=== PATIENT | male | born 1975 | race Caucasian/White ===

== ENCOUNTER 2018-03-13 14:09 | Inpatient (IN) ==
--- NOTE | 2018-03-13 15:06 | Emergency Department Note ---
Disposition Clinical Impression: Cryptogenic organizing pneumonia, Shortness of breath Disposition: Admitted As Inpatient Condition: Fair Time of Disposition: 19:04 General Adult HPI - General Chief complaint: ED Shortness of Breath/Dyspnea Stated complaint: "cough,chest burning has lung disease" Time Seen by Provider: 03/13/18 15:04 Source: patient Limitations: no limitations Nursing Notes Reviewed: Yes Vital Signs Reviewed: Yes - History of Present Illness HPI Narrative: 43-year-old male presents emergency department with concern for 5 days of cough. Patient has history of cryptogenic organizing pneumonia. States that this feels exactly the same as where he had it before. Patient does report having ICU admissions. States that his lungs are burning. Denies any fevers, but does report sputum production. Patient states that he feels exact same as when he was diagnosed with cryptogenic organizing pneumonia in the past. Patient denies any history of blood clots. He denies any unilateral leg swelling. He does report the chest pain as pleuritic in nature. Pain Scale: 10 - Related Data Home Medications Medication Instructions Recorded Confirmed Cyclobenzaprine [Flexeril] 10 mg PO TID PRN 03/13/18 03/13/18 Gabapentin [Neurontin] 300 mg PO TID 03/13/18 03/13/18 Naproxen Sodium [Aleve] 660 mg PO BID 03/13/18 03/13/18 Omeprazole [PriLOSEC] 20 mg PO DAILY 03/13/18 03/13/18 Oxycodone HCl/Acetaminophen 1 tab PO Q6H PRN 03/13/18 03/13/18 [Percocet 10-325 mg Tablet] Quetiapine Fumarate [SEROquel] 50 mg PO HS 03/13/18 03/13/18 rOPINIRole [Requip] 0.25 mg PO HS 03/13/18 03/13/18 Allergies Allergy/AdvReac Type Severity Reaction Status Date / Time meloxicam [From Mobic] Allergy Rash Verified 03/13/18 17:17 Penicillins [PCN] Allergy Rash Verified 03/13/18 17:17 aspirin AdvReac See Verified 03/13/18 17:17 Comments All systems ED: reviewed and negative except as stated. Review of Systems: As Per HPI Constitutional: Denies: fever Cardiovascular: Reports: chest pain. Denies: palpitations Respiratory: Reports: cough, dyspnea, sputum production. Denies: wheezes, hemoptysis Gastrointestinal: Denies: abdominal pain, nausea, vomiting Musculoskeletal: Denies: back pain Past Medical History - Past Medical History Medical history: Reports: arthritis, GERD, GI bleed, other Surgical history: Reports: other (Left knee reconstruction, right shoulder surgery, Spinal cord stimulator insertion and revision, Right hip arthroscopy, benign bladder tumor removal, right nephrectomy x 2) Psychiatric history: Reports: anxiety, depression - Social History Smoking Status: Former smoker Smokeless Tobacco Status: Yes Alcohol use: Reports: none Drug use: Reports: opiates Physical Exam - General Limitations: no limitations General appearance: alert, in no apparent distress - Head Head exam: normocephalic - Eye Eye exam: Present: EOMI - ENT ENT exam: mucous membranes moist - Neck Neck exam: Present: trachea midline - Chest Chest inspection: Present: symmetric chest wall rise - Respiratory Respiratory exam: Absent: respiratory distress - Cardiovascular Cardiovascular exam: Present: normal rhythm, tachycardia - Abdominal Exam Abdominal exam: Present: soft, Non-Tender. Absent: distention, guarding, rebound, rigidity - Extremities Exam Extremities exam: Present: normal capillary refill - Neurological Exam Neurological exam: Present: alert, oriented X3 - Psychiatric Psychiatric exam: Present: normal affect, normal mood - Skin Skin exam: Present: warm, dry, intact Course Vital Signs Temperature 98.4 F 03/13/18 14:14 Pulse Rate 130 03/13/18 14:14 Respiratory Rate 22 03/13/18 14:14 Blood Pressure 134/93 03/13/18 14:14 O2 Sat by Pulse Oximetry 96 03/13/18 14:14 Temperature 98.4 F 03/13/18 14:17 Pulse Rate 130 03/13/18 14:17 Respiratory Rate 22 03/13/18 14:17 Blood Pressure 134/93 03/13/18 14:17 O2 Sat by Pulse Oximetry 96 03/13/18 14:17 Oxygen Delivery Oxygen Delivery Room Air Medical Decision Making - [facility] Narrative Medical decision making narrative: 43-year-old male presents emergency department with concern for exacerbation of his chronic lung disease, cryptogenic organizing pneumonia. Patient's currently tachycardic with a heart rate in the 130s. He does have evidence of a new perihilar groundglass opacity bilaterally concerning for acute edema versus atypical infection. At this time, most likely patient's cryptogenic organizing pneumonia. Do not suspect heart failure at this time as patient does not have any rales on lung exam, does not have any lower extremity edema. EKG did not show any ischemic ST changes. We will obtain troponin. We are consulting our research greenhouse supervisor here. Patient's given 125 mg Solu-Medrol IV. Chest X-Ray 03/13/18 14:25 IMPRESSION: New mild bilateral perihilar ground-glass opacity concerning for acute edema versus atypical infection. D/ / Venkata Jacobsen / Venkata Jacobsen Interpreting Provider: Venkata Jacobsen [id number] I spoken to the research greenhouse supervisor here, Dr. Rodriguez. He states the patient to stay here and he would be consulted on the floor to follow him. We obtained CTA of the chest. Revealed no evidence of pulmonary embolus. This did reveal patchy multifocal groundglass opacification with upper lobe predominance per radiology. Similar to previous CT that was obtained. Troponin was 0.06. Patient reporting chest pain, just reporting a little burning sensation. Do not suspect myocardial infarction at this time. Believe that this is secondary to demand ischemia. EKG did not reveal any ischemic ST changes. Patient does have a leukocytosis of 27.8. Patient always has an elevated white blood cell count. We are currently managing both healthcare associated pneumonia as well as cryptogenic organizing pneumonia. Patient was given vancomycin, cefepime, azithromycin. We did obtain sputum cultures. Patient agree with plan for admission. Patient admitted to Dr. Pacheco, the hospitalist. Chest X-Ray 03/13/18 14:25 IMPRESSION: New mild bilateral perihilar ground-glass opacity concerning for acute edema versus atypical infection. D/ / Venkata Jacobsen / Venkata Jacobsen Interpreting Provider: Venkata Jacobsen Chest CTA 03/13/18 15:18 IMPRESSION: 1. No evidence of pulmonary embolic disease. 2. Patchy multifocal ground-glass opacification with upper lobe predominance. The findings are nonspecific and similar to the previous CT. Differential considerations include atypical pneumonia and possibly edema. 3. Small mediastinal nodes, slightly increased in size and likely reactive. D/ / 03/13/2018 17:34:38 Virgil Gaston MD / Lakshmi Springer Interpreting Provider: Virgil Gaston MD - Lab Data Result diagrams: 03/13/18 15:51 03/13/18 15:51 Lab Results 03/13/18 03/13/18 03/13/18 Range/Units 15:51 15:51 16:07 WBC 27.8 H (4.3-11.1) K/mcL RBC 5.35 (4.19-5.50) M/mcL Hgb 15.8 (12.9-16.9) g/dL Hct 46.4 (37.5-50.1) % MCV 86.7 (83.0-100.0) fL MCH 29.5 (28.0-33.3) pg MCHC 34.1 (31.6-35.5) g/dL RDW 12.9 (11.5-14.5) % Plt Count 384 (140-400) K/mcL MPV 9.2 L (9.4-12.4) fL Sodium 137 (136-145) mEq/L Potassium 4.0 (3.5-5.1) mEq/L Chloride 102 (98-107) mEq/L Carbon Dioxide 24 (23-29) mEq/L BUN 12 (6-20) mg/dL Creatinine 1.12 (0.70-1.30) mg/dL Est GFR ( Amer) > 60 (> 60) Est GFR (Non-Af Amer) > 60 (> 60) BUN/Creatinine Ratio 11 (6-26) Glucose 97 (70-105) mg/dL Calculated Osmolality 284 (280-300) Lactic Acid 1.4 (0.5-2.2) mmol/L Calcium 10.1 (8.6-10.3) mg/dL Troponin I 0.06 H* (< 0.04) ng/mL B-Natriuretic Peptide (Less than 100) pg/mL TSH 0.487 (0.340-5.600) mcIU/mL 03/13/18 Range/Units 16:49 WBC (4.3-11.1) K/mcL RBC (4.19-5.50) M/mcL Hgb (12.9-16.9) g/dL Hct (37.5-50.1) % MCV (83.0-100.0) fL MCH (28.0-33.3) pg MCHC (31.6-35.5) g/dL RDW (11.5-14.5) % Plt Count (140-400) K/mcL MPV (9.4-12.4) fL Sodium (136-145) mEq/L Potassium (3.5-5.1) mEq/L Chloride (98-107) mEq/L Carbon Dioxide (23-29) mEq/L BUN (6-20) mg/dL Creatinine (0.70-1.30) mg/dL Est GFR ( Amer) (> 60) Est GFR (Non-Af Amer) (> 60) BUN/Creatinine Ratio (6-26) Glucose (70-105) mg/dL Calculated Osmolality (280-300) Lactic Acid (0.5-2.2) mmol/L Calcium (8.6-10.3) mg/dL Troponin I (< 0.04) ng/mL B-Natriuretic Peptide 51 (Less than 100) pg/mL TSH (0.340-5.600) mcIU/mL - EKG Data EKG #1 EKG attestation: Yes I reviewed and interpreted this EKG. EKG results narrative: 14:25 Ventricular rate 122 bpm, IA interval 125 ms, QRS tenriism 91 ms, QT 296 segs , QTC 369 ms, normal axis. Sinus tachycardia with a ventricular rate of 122 bpm. No evidence of any ischemic ST changes on this EKG. Attestation Statement - Attestation Attestation: I, Morales Osorio DO, examined this patient [id number] and my medical decision-making was reviewed with Dr. Tone Turner, Resident Physician. I agree with the documented findings, disposition and treatment plan as described except to the extent set forth below. Please see my progress notes for details.
[2018-03-13] MEDS ORDERED: Ipratropium/Albuterol Neb 3 ML IH ONE (15:09)
[2018-03-13] MEDS ORDERED: Isovue-370 500 ML INFUS..BTL IV ONE (15:18)
[2018-03-13] MEDS ORDERED: methylPREDNISolone 125 MG/2 ML VIAL IVP ONE (15:19)
[2018-03-13] MEDS ORDERED: *HR* Morphine Immed Rel 30 MG TABLET PO STA (15:21)
[2018-03-13] MEDS ORDERED: 0.9 % Sodium Chloride 1,000 ML IVC ONE ×2 (15:22→15:51)
[2018-03-13] MEDS ORDERED: Azithromycin 500 MG in D5% in Water 250 ML IVPB ONE (15:33)
[2018-03-13] MEDS ORDERED: Cefepime HCl 2,000 MG in 0.9 % Sodium Chloride Mini Bag 100 ML IVPB STA (15:33)
[2018-03-13 16:11] LABS: Mean Platelet Volume 9.2 fL (9.4-12.4)
[2018-03-13 16:12] LABS: Hematocrit 46.4 % (37.5-50.1); Hemoglobin 15.8 g/dL (12.9-16.9); Mean Corpuscular HGB Conc 34.1 g/dL (31.6-35.5); Mean Corpuscular Hemoglobin 29.5 pg (28.0-33.3); Mean Corpuscular Volume 86.7 fL (83.0-100.0); Platelet Count 384 K/mcL (140-400); Red Blood Count 5.35 M/mcL (4.19-5.50); Red Cell Distribution Width 12.9 % (11.5-14.5)
--- NOTE | 2018-03-13 16:17 | Emergency Department Note ---
Disposition Clinical Impression: Cryptogenic organizing pneumonia, Shortness of breath Disposition: Admitted As Inpatient Condition: Fair Time of Disposition: 19:05 General Adult HPI - General Chief complaint: ED Shortness of Breath/Dyspnea Stated complaint: "cough,chest burning has lung disease" Time Seen by Provider: 03/13/18 15:04 Source: patient Limitations: no limitations - History of Present Illness Pain Scale: 10 - Related Data Home Medications Medication Instructions Recorded Confirmed Cyclobenzaprine [Flexeril] 10 mg PO TID PRN 03/13/18 03/13/18 Gabapentin [Neurontin] 300 mg PO TID 03/13/18 03/13/18 Naproxen Sodium [Aleve] 660 mg PO BID 03/13/18 03/13/18 Omeprazole [PriLOSEC] 20 mg PO DAILY 03/13/18 03/13/18 Oxycodone HCl/Acetaminophen 1 tab PO Q6H PRN 03/13/18 03/13/18 [Percocet 10-325 mg Tablet] Quetiapine Fumarate [SEROquel] 50 mg PO HS 03/13/18 03/13/18 rOPINIRole [Requip] 0.25 mg PO HS 03/13/18 03/13/18 Allergies Allergy/AdvReac Type Severity Reaction Status Date / Time meloxicam [From Mobic] Allergy Rash Verified 03/13/18 17:17 Penicillins [PCN] Allergy Rash Verified 03/13/18 17:17 aspirin AdvReac See Verified 03/13/18 17:17 Comments Constitutional: Denies: fever Cardiovascular: Reports: chest pain. Denies: palpitations Respiratory: Reports: cough, dyspnea, sputum production. Denies: wheezes, hemoptysis Gastrointestinal: Denies: abdominal pain, nausea, vomiting Musculoskeletal: Denies: back pain Past Medical History - Past Medical History Medical history: Reports: arthritis, GERD, GI bleed, other Surgical history: Reports: other (Left knee reconstruction, right shoulder surgery, Spinal cord stimulator insertion and revision, Right hip arthroscopy, benign bladder tumor removal, right nephrectomy x 2) Psychiatric history: Reports: anxiety, depression - Social History Smoking Status: Former smoker Smokeless Tobacco Status: Yes Alcohol use: Reports: none Drug use: Reports: opiates Physical Exam - General Limitations: no limitations General appearance: alert, in no apparent distress Course Vital Signs Temperature 98.4 F 03/13/18 14:14 Pulse Rate 130 03/13/18 14:14 Respiratory Rate 22 03/13/18 14:14 Blood Pressure 134/93 03/13/18 14:14 O2 Sat by Pulse Oximetry 96 03/13/18 14:14 Temperature 98.4 F 03/13/18 14:17 Pulse Rate 130 03/13/18 14:17 Respiratory Rate 22 03/13/18 14:17 Blood Pressure 134/93 03/13/18 14:17 O2 Sat by Pulse Oximetry 96 03/13/18 14:17 Oxygen Delivery Oxygen Delivery Room Air Medical Decision Making - Lab Data Result diagrams: 03/13/18 15:51 03/13/18 15:51 Lab Results 03/13/18 03/13/18 03/13/18 Range/Units 15:51 15:51 16:07 WBC 27.8 H (4.3-11.1) K/mcL RBC 5.35 (4.19-5.50) M/mcL Hgb 15.8 (12.9-16.9) g/dL Hct 46.4 (37.5-50.1) % MCV 86.7 (83.0-100.0) fL MCH 29.5 (28.0-33.3) pg MCHC 34.1 (31.6-35.5) g/dL RDW 12.9 (11.5-14.5) % Plt Count 384 (140-400) K/mcL MPV 9.2 L (9.4-12.4) fL Sodium 137 (136-145) mEq/L Potassium 4.0 (3.5-5.1) mEq/L Chloride 102 (98-107) mEq/L Carbon Dioxide 24 (23-29) mEq/L BUN 12 (6-20) mg/dL Creatinine 1.12 (0.70-1.30) mg/dL Est GFR ( Amer) > 60 (> 60) Est GFR (Non-Af Amer) > 60 (> 60) BUN/Creatinine Ratio 11 (6-26) Glucose 97 (70-105) mg/dL Calculated Osmolality 284 (280-300) Lactic Acid 1.4 (0.5-2.2) mmol/L Calcium 10.1 (8.6-10.3) mg/dL Troponin I 0.06 H* (< 0.04) ng/mL B-Natriuretic Peptide (Less than 100) pg/mL TSH 0.487 (0.340-5.600) mcIU/mL 03/13/18 Range/Units 16:49 WBC (4.3-11.1) K/mcL RBC (4.19-5.50) M/mcL Hgb (12.9-16.9) g/dL Hct (37.5-50.1) % MCV (83.0-100.0) fL MCH (28.0-33.3) pg MCHC (31.6-35.5) g/dL RDW (11.5-14.5) % Plt Count (140-400) K/mcL MPV (9.4-12.4) fL Sodium (136-145) mEq/L Potassium (3.5-5.1) mEq/L Chloride (98-107) mEq/L Carbon Dioxide (23-29) mEq/L BUN (6-20) mg/dL Creatinine (0.70-1.30) mg/dL Est GFR ( Amer) (> 60) Est GFR (Non-Af Amer) (> 60) BUN/Creatinine Ratio (6-26) Glucose (70-105) mg/dL Calculated Osmolality (280-300) Lactic Acid (0.5-2.2) mmol/L Calcium (8.6-10.3) mg/dL Troponin I (< 0.04) ng/mL B-Natriuretic Peptide 51 (Less than 100) pg/mL TSH (0.340-5.600) mcIU/mL Attestation Statement - Attestation Attestation: I, Morales Osorio DO, examined this patient [id number] and my medical decision-making was reviewed with Dr. Tone Turner, Resident Physician. I agree with the documented findings, disposition and treatment plan as described except to the extent set forth below. Please see my progress notes for details. 43-year-old male presents emergency room for evaluation of burning sensation in his lungs. He is denying any chest pain fevers chills nausea vomiting or diarrhea. Denies any headache or vision change. Of note, the patient has a long-standing history of cryptogenic organizing pneumonia that is been seen and evaluated and treated for this facility by pulmonology as well as [facility]. Patient is been well for approximately 2 years without a flareup. The only thing that is worse from in the past when he gets his acute flareups is morphine for the cough as well as high-dose steroids. Patient denies any new illnesses fevers chills chest pain shortness of breath headache vision changes nausea vomiting or diarrhea. Denies any burning with urination cough cold congestion. Patient has not had any trauma or injury. On physical exam the patient is tachycardic and does have what looks like some difficulty with taking inspiration secondary to the pain. He describes pain as every time he goes to breathe and her abdomen is associated. Burning sensation in his lungs. Patient has been seen by the pulmonology team here at this facility and is being medically managed as best as possible. On physical exam his resting in the bed he does have abnormal vital signs appear to be consistent with a presentation of pain and difficulty with breathing his heart is regular his lungs are clear to auscultation despite having diminished inspiratory effort secondary to pain chest wall is normal presentation with no crepitus or deformity. Abdomen is soft. Patient moves his extremities without any difficulty and does not show any acute signs of decompensation or pulmonary abnormality. Patient will have detailed workup here today with CBC chemistry troponin EKG and CT angiography the chest to rule out any other potential etiology considering has not had a thorough workup and this facility and quite a long time. Patient is clinically stable but does have concerning findings on initial presentation exam and vital sign evaluation. Antibiotics will be started as requested by conversations with the pulmonology group. Patient will require admission once a treatment course has been established and started. See detailed documentation of physical exam, medical intervention, medical decision-making disposition the resident physician's note. No critical care by the patient's treatment course at this time. [id number] Patient is stable. Steroids have been given. Pneumatic regimen was started. Pulmonology team has been contacted and they are comfortable with the patient's care being completed this facility. Patient has consult placed. CT angiography the chest does not show any acute signs of pulmonary emboli but the hip does show possible right upper lobe groundglass opacity consistent with either pneumonia or chronic interstitial disease. Patient is clinically stable. Admission process to be established at this time. No other acute intervention required. This was contacted and recommendations were considered no other acute issues this time patient still 1800 Patient was discussed with the hospitalist Dr. Sharpe. No other recommendations or concerns. Patient is clinically stable. Patient will be admitted for continuation of care with pulmonology consultation.
[2018-03-13 16:26] LABS: BUN/Creatinine Ratio 11 (6-26); Blood Urea Nitrogen 12 mg/dL (6-20); Calcium 10.1 mg/dL (8.6-10.3); Carbon Dioxide 24 mEq/L (23-29); Chloride 102 mEq/L (98-107); Glucose 97 mg/dL (70-105); Osmolality,Calculated 284 (280-300); Sodium 137 mEq/L (136-145); eGFR For Non-African Americans > 60 (> 60)
[2018-03-13 16:39] LABS: Troponin I 0.06 ng/mL (< 0.04)
[2018-03-13 16:40] LABS: Thyroid Stimulating Hormone 0.487 mcIU/mL (0.340-5.600)
[2018-03-13] MEDS ORDERED: Ondansetron 4 MG/2 ML VIAL IVP PRN (20:43)
[2018-03-13] MEDS ORDERED: Naloxone 0.4 MG/ML INJ IVP PRN ×2 (20:43)
--- NOTE | 2018-03-13 20:49 | Internal Med History&Physical ---
<Jorge Martinez - Last Filed: 03/14/18 04:49> Date of Encounter: 03/14/18 Time of Encounter: 20:49 Internal Medicine - H&P: HPI Chief complaint: chest burning, cough Admitted From: Emergency Dept Plans for Post Hospital Care: Home History of present illness: Mr. Mederos is a 43 year old male with past medical history of cryptogenic organizing pneumonia, arthritis, GERD, degenerative disc disease presents to emergency department with complaint of cough and chest burning. He states the cough began 5 days ago is nonproductive. Chest pain began yesterday and has been getting progressively worse. He states that this feels exactly like his previous flare of cryptogenic organizing pneumonia. He was first diagnosed at this facility in June 2015 with a flare in March 2016. He states his initial diagnosis did require intubation, lung biopsy and transferred to [facility] intensive care. He states that he has been otherwise well meantime. He describes his chest pain as diffusely located across the chest and burning in nature. Pain is exacerbated with deep breathing and coughing. He denies any symptoms of fevers, chills, nausea, vomiting, numbness, tingling. He states that he is not necessarily short of breath but finds it difficult to take a deep breath due to his pain. He also describes some orthopnea but denies any lower extremity swelling. In the emergency department, vital signs are significant for tachycardia with a rate of 130, tachypnea 22, blood pressure 134/93, he was not was saturating 96% on 4L. laboratory results significant for WBC elevation of 27.8, troponin 0.06, BUNs/creatinine of 12/1.12 which is consistent with baseline. CTA of the chest was obtained to rule out coronary embolism and shows patchy multifocal groundglass opacities with prominence in the upper lobes. Pulmonology was consulted from the emergency department and will see the patient morning. He was started on vancomycin, cefepime, azithromycin as well as methylprednisone 125 mg. Past medical history as above Past surgical history includes left leg multiple surgeries secondary to trauma, metal plate. Lung biopsy Social history: Denies tobacco use, rare alcohol, denies drug use. Currently on disability since 2014 however previously worked in halfway, as welder plastic?, on farm. Past Med Surg Social Fam HX - Past Medical History Medical history: arthritis, GERD, GI bleed, other Additional medical history: criptogenic organizing PN Psychiatric history: anxiety, depression - Past Surgical History Surgical History: other (Left knee reconstruction, right shoulder surgery, Spinal cord stimulator insertion and revision, Right hip arthroscopy, benign bladder tumor removal, right nephrectomy x 2) Additional surgical history: RIGHT HIP SCOPED x2, LUNG BIOPSY - Social History Smoking Status: Former smoker Smokeless Tobacco Status: Yes Alcohol use: none Drug use: opiates - Family History Mother Adopted: Yes Living Status: Internal Medicine - H&P: Meds Cyclobenzaprine [Flexeril] 10 mg PO TID PRN 03/13/18 [History] Naproxen Sodium [Aleve] 660 mg PO BID 03/13/18 [History] Oxycodone HCl/Acetaminophen [Percocet 10-325 mg Tablet] 1 tab PO Q6H PRN [History] Quetiapine Fumarate [SEROquel] 50 mg PO HS 03/13/18 [History] RX: Gabapentin [Neurontin] 300 mg PO TID 03/13/18 [History] RX: Omeprazole [PriLOSEC] 20 mg PO DAILY 03/13/18 [History] rOPINIRole [Requip] 0.25 mg PO HS 03/13/18 [History] 3 Allergy/AdvReac Type Severity Reaction Status Date / Time meloxicam [From Mobic] Allergy Rash Verified 03/13/18 17:17 Penicillins [PCN] Allergy Rash Verified 03/13/18 17:17 aspirin AdvReac See Verified 03/13/18 17:17 Comments All Systems PM: A 10-system review of systems was performed and is negative for pertinent findings except as documented above in the HPI. - Constitutional Constitutional: no chills, no fever(s), no weakness - Cardiovascular Cardiovascular ROS IM: chest pain, dyspnea, orthopnea, other (Tachycardia), no dyspnea on exertion, no edema, no lightheadedness, no palpitations, no paroxysmal nocturnal dyspnea, no syncope - Respiratory Respiratory: cough, dyspnea, pain on inspiration, pain with cough, no hemoptysis , no wheezing, no excessive phlegm production - Gastrointestinal Gastrointestinal: no abdominal pain, no constipation, no diarrhea, no hematochezia, no melena, no nausea, no vomiting - Musculoskeletal Musculoskeletal ROS IM: no numbness, no tingling - Integumentary Integumentary IM: no rash - Neurological Neurological ROS: no confusion, no numbness, no tingling, no weakness - Constitutional Vitals: Temp Pulse Resp BP Pulse Ox 98.4 F 87 18 130/97 99 03/13/18 14:17 03/13/18 20:15 03/13/18 20:15 03/13/18 20:15 03/13/18 20:15 Exam: Gen.: Vitals noted. Mild distress, shallow rapid breathing secondary to pain. Speaking softly. AAOx3 HEENT: PERRL/EOMI, oropharynx clear, Normocephalic, atraumatic, MMM Cardiac: Regular rhythm, very mildly tachycardic, no murmur, +S1/S2 Pulmonary: Shallow breathing, some coarse breath sounds with no evidence of wheezing or Rales however exam is limited secondary to inability to take deep breaths., equal chest expansion Abdomen: soft, nontender, BS noted, no guarding, no rebound. Extremities: no BLE edema, nontender calf, no cyanosis or clubbing Neuro: A&Ox3, moves all extremities, no focal deficits Psych: Appropriate mood and behavior Internal Med - H&P Results - Labs CBC & Chem 7: 03/13/18 15:51 03/13/18 15:51 - Assessment and plan (1) Acute respiratory failure with hypoxia Current Visit: Yes Status: Acute Assessment and plan: secondary to ANDROID DEVELOPER as above hypoxic on presentation and patient states that he is unable to take deep breaths due to pain currently tolerating 4L with saturations in upper 90s management as above. patient was told in the past that if he is intubated that he is unlikely to ever wake up. we did discuss code status and he made it clear that he would like to be [id number]. (2) Sepsis Current Visit: Yes Status: Suspected Assessment and plan: - SIRS criteria positive for tachycardia (130), RR 22, WBC of 27.8 - lactate wnl at 1.4 - Suspect that this is partially at least related to ANDROID DEVELOPER as above, but with elevated white count in the absence of steroids we will continue to cover for multifocal PNA - CTA as above findings - Continue cefepime, azithromycin, vanc started in ED Qualifiers: Sepsis type: sepsis due to unspecified organism Qualified Code(s): A41.9 - Sepsis, unspecified organism (3) Chronic pain Current Visit: Yes Status: Chronic Assessment and plan: Reports multiple traumas with severe degenerative disc disease Take percocet 10mg at home Will give SL oxycodone with breakthrough fentanyl for pain as well as cough suppressant as above Qualifiers: Chronic pain type: due to trauma Qualified Code(s): G89.21 - Chronic pain due to trauma (4) GERD (gastroesophageal reflux disease) Current Visit: Yes Status: Chronic Assessment and plan: continue home meds Qualifiers: Esophagitis presence: without esophagitis Qualified Code(s): K21.9 - Gastro -esophageal reflux disease without esophagitis (5) DVT prophylaxis Current Visit: Yes Status: Acute Assessment and plan: Heparin 5000 units q12 hours (6) Cryptogenic organizing pneumonia Current Visit: Yes Status: Acute Assessment and plan: - History of ANDROID DEVELOPER first diagnosed in 2014 at this facility - Has had one flare in 2016 which had to be transferred to [facility] - CTA in ED showed patchy multifocal ground glass opacification with upper lobe predominance. - tachcyardic and tachypnic on presentation and WBC is elevated at 27.8 - Pulmonology was consult in ED and will see patient - Got solu-medrol bolus in ED, start on empiric antibiotics. - BNP wnl, lactic acid wnl Plan - Continue steroid treatment at solu-medrol 60 mg q6hr - Will continue abx of cefepime, azithromycin, vanc given leukocytosis - pulm consult - Continue supplemental O2 as needed. - Will give SL oxycodone and fentanyl for breakthrough pain. Patient states the only thing that helps cough and pain in the past has been morphine. He does have a history of chronic pain and takes percocet 10mg at home which have not been helping. - Time Spent With Patient Total time spent is greater than 50% in coordination of care (as documented) at patient's floor/unit and/or counseling patient: <Erik Kline - Last Filed: 03/14/18 07:09> Date of Encounter: 03/14/18 Internal Medicine - H&P: HPI History of present illness: Mr. Mederos is a 43 year old male All Systems PM: A 10-system review of systems was performed and is negative for pertinent findings except as documented above in the HPI. - Constitutional Vitals: Temp Pulse Resp BP Pulse Ox 97.6 F 70 16 141/85 95 03/14/18 06:38 03/14/18 06:38 03/14/18 06:38 03/14/18 06:38 03/14/18 06:38 Internal Med - H&P Results - Labs CBC & Chem 7: 03/14/18 04:05 03/14/18 04:05 Labs: Short CBC 03/14/18 Range/Units 04:05 WBC 17.3 H (4.3-11.1) K/mcL Hgb 14.5 (12.9-16.9) g/dL Hct 42.5 (37.5-50.1) % Plt Count 326 (140-400) K/mcL Neutrophils # 15.2 H (1.6-8.9) K/mcL BMP 03/14/18 04:05 Sodium 136 Potassium 4.0 Chloride 105 Carbon Dioxide 23 BUN 12 Creatinine 0.90 Glucose 193 H Calcium 9.0 Cardiac Enzymes 03/14/18 Range/Units 04:05 Troponin I 0.03 (< 0.04) ng/mL - Assessment and plan (1) DVT prophylaxis Current Visit: Yes Status: Acute (2) Chronic pain Current Visit: Yes Status: Chronic Qualifiers: Chronic pain type: due to trauma Qualified Code(s): G89.21 - Chronic pain due to trauma (3) Acute respiratory failure with hypoxia Current Visit: Yes Status: Acute (4) Sepsis Current Visit: Yes Status: Suspected Qualifiers: Sepsis type: sepsis due to unspecified organism Qualified Code(s): A41.9 - Sepsis, unspecified organism (5) GERD (gastroesophageal reflux disease) Current Visit: Yes Status: Chronic Qualifiers: Esophagitis presence: without esophagitis Qualified Code(s): K21.9 - Gastro -esophageal reflux disease without esophagitis (6) Cryptogenic organizing pneumonia Current Visit: Yes Status: Acute - Time Spent With Patient Total time spent is greater than 50% in coordination of care (as documented) at patient's floor/unit and/or counseling patient: - Attending Attestation Patient seen and examined with resident. Agree with assessment and plan; possible laceration of patient's cryptogenic organizing pneumonia flare secondary to suspected pneumonia. Continues broad-spectrum antibiotics, steroids. Pulmonary consultation morning. Time spent with patient greater than 30 minutes.
[2018-03-13] MEDS: *HR* FentaNYL (PF) 100 MCG/2 ML VIAL IVP PRN ×2 (22:04→23:30)
[2018-03-13] MEDS: rOPINIRole 0.25 MG TABLET PO SCH (23:09)
[2018-03-13] MEDS: Gabapentin 300 MG CAPSULE PO SCH (23:10)
[2018-03-13] MEDS: methylPREDNISolone 125 MG/2 ML VIAL IVP SCH (23:31)
[2018-03-13] MEDS ORDERED: *HR* FentaNYL (PF) 100 MCG/2 ML VIAL IVP PRN (23:50)
[2018-03-14] MEDS: OXYCODONE Oral CONC 10 MG/0.5 ML ORAL.SYG SL PRN ×3 (00:28→09:46)
[2018-03-14 04:49] LABS: Basophils % 0.2 %; Hematocrit 42.5 % (37.5-50.1); Hemoglobin 14.5 g/dL (12.9-16.9); Immature Granulocytes % 0.8 % (0-4); Lymphocytes # 1.7 K/mcL (0.6-4.6); Lymphocytes % 9.9 %; Mean Corpuscular HGB Conc 34.1 g/dL (31.6-35.5); Mean Corpuscular Hemoglobin 29.6 pg (28.0-33.3); Mean Corpuscular Volume 86.7 fL (83.0-100.0); Mean Platelet Volume 9.4 fL (9.4-12.4); Monocytes # 0.3 K/mcL (0.0-1.3); Monocytes % 1.5 %; Neutrophils # 15.2 K/mcL (1.6-8.9); Platelet Count 326 K/mcL (140-400); Red Cell Distribution Width 12.7 % (11.5-14.5); Segmented Neutrophils % 87.6 %
--- NOTE | 2018-03-14 04:51 | Sepsis Event Note ---
Sepsis Reassessment Note - Evaluation Sepsis Screen: No Definite Risk Current Stage of Sepsis: ruled out Reason for ruling out sepsis: Tachycardia resolved. Possible Source of Sepsis: pulmonary - Focused Exam Date of Encounter: 03/14/18 Time of Encounter: 04:50 Vital Signs: Vital Signs Temp Pulse Resp BP Pulse Ox 03/14/18 04:29 97.5 F L 79 16 123/86 98 03/14/18 00:17 98.1 F 88 16 143/91 97 Respiratory Exam: Present: decreased breath sounds, diminished air movement. Absent: respiratory distress Cardiovascular Exam: Present: RRR Capillary Refill: < 2 seconds Peripheral Pulse Strength: 3+ normal Peripheral Pulse Location: Radial Skin Exam: pink
[2018-03-14 04:59] LABS: BUN/Creatinine Ratio 13 (6-26); Blood Urea Nitrogen 12 mg/dL (6-20); Carbon Dioxide 23 mEq/L (23-29); Chloride 105 mEq/L (98-107); Glucose 193 mg/dL (70-105); Magnesium 1.8 mg/dL (1.6-2.6); Osmolality,Calculated 287 (280-300); Sodium 136 mEq/L (136-145); eGFR For Non-African Americans > 60 (> 60)
[2018-03-14] MEDS: *HR* Heparin 5,000 UNIT/ML VIAL SQ SCH ×2 (05:04→17:11)
[2018-03-14] MEDS: methylPREDNISolone 125 MG/2 ML VIAL IVP SCH ×3 (05:04→17:09)
--- NOTE | 2018-03-14 09:41 | Pulmonology Consult Note ---
Date of Encounter: 03/14/18 Time of Encounter: 09:00 Assessment and Plan (1) Acute respiratory failure with hypoxia Current Visit: Yes Status: Acute He has already diagnosed cryptogenic organizing pneumonia patient CT scan shows worsening groundglass opacities likely(exacerbation cryptogenic Pneumonia is reasonable to treat for any atypical infections. To continue steroids patient will need at least 4-6 months of steroids before we can taper. Patient to be regularly followed up here at [place] pulmonology or [facility] pulmonology Patient preference . (2) Cryptogenic organizing pneumonia Current Visit: No Status: Acute (3) Opioid dependence Current Visit: Yes Status: Acute Has chronic opiate dependence because of the degenerative disc disease since he has a genuine flareup of cryptogenic organizing pneumonia with severe chest pain will give some parenteral opioids should be temporary as his inflammation settles down he needs to be going back to his home opioid regimen. Qualifiers: Substance use status: with unspecified opioid-induced disorder Qualified Code(s): F11.29 - Opioid dependence with unspecified opioid-induced disorder History of Present Illness Consult date: 03/14/18 Requesting physician: Tone Turner Reason for consult: dyspnea, cough Chief complaint: cough with chest pain History of present illness: 43-year-old male with past medical history significant for cryptogenic organizing pneumonia, GERD, degenerative disc disease on chronic antibiotics patient was diagnosed with cryptogenic are not missing pneumonia in 2014 where he was intubated for a prolonged period of time needed lung biopsy and transferred to [facility] for further management and he had a flareup in 2016 after that he did not have much flareup of this disease is not on any chronic prednisone therapy according to patient for the past 5 days he developed dry cough not much sputum production but had developed chest pain with burning sensation which is similar to his previous cryptogenic organizing pneumonia flareup so patient was concerned about that we will presented to the ED where they did a CTA which did not show any pulmonary embolism but showed worsening multifocal groundglass opacities. Denies any fever or chills has has chronic joint pain denies any headache denies any constitutional symptoms denies any eye issues denies any neuro symptoms has on and off GERD symptoms patient denies any smoking denies any recreational drug abuse patient denies any occupational or any other unusual hobbies or any other pet exposure. Patient is here for management of this acute hypoxic respiratory failure secondary most likely to exacerbation of cryptogenic organizing pneumonia. Past Med Surg Social Fam HX - Past Medical History Medical history: arthritis, GERD, GI bleed, other Additional medical history: criptogenic organizing PN Psychiatric history: anxiety, depression - Past Surgical History Surgical History: other (Left knee reconstruction, right shoulder surgery, Spinal cord stimulator insertion and revision, Right hip arthroscopy, benign bladder tumor removal, right nephrectomy x 2) Additional surgical history: RIGHT HIP SCOPED x2, LUNG BIOPSY - Social History Smoking Status: Former smoker Smokeless Tobacco Status: Yes Alcohol use: none Drug use: opiates - Family History Mother Adopted: Yes Living Status: Medications and Allergies Cyclobenzaprine [Flexeril] 10 mg PO TID PRN 03/13/18 [History] Gabapentin [Neurontin] 300 mg PO TID 03/13/18 [History] Naproxen Sodium [Aleve] 660 mg PO BID 03/13/18 [History] Omeprazole [PriLOSEC] 20 mg PO DAILY 03/13/18 [History] Oxycodone HCl/Acetaminophen [Percocet 10-325 mg Tablet] 1 tab PO Q6H PRN [History] Quetiapine Fumarate [SEROquel] 50 mg PO HS 03/13/18 [History] rOPINIRole [Requip] 0.25 mg PO HS 03/13/18 [History] 3 Allergy/AdvReac Type Severity Reaction Status Date / Time meloxicam [From Mobic] Allergy Rash Verified 03/13/18 17:17 Penicillins [PCN] Allergy Rash Verified 03/13/18 17:17 aspirin AdvReac See Verified 03/13/18 17:17 Comments All Systems: The remainder of the systems were reviewed and are negative Physical Examination Vital Signs: Vital Signs, Last 4 Hours Temp Pulse Resp BP Pulse Ox 03/14/18 06:38 97.6 F 70 16 141/85 95 Auscultation: bilateral: wheezes (scattered wheezes ) Results - Laboratory Findings CBC and BMP: 03/14/18 04:05 03/14/18 04:05 Abnormal lab findings: Abnormal lab results WBC 17.3 K/mcL (4.3-11.1) H 03/14/18 04:05 Neutrophils # 15.2 K/mcL (1.6-8.9) H 03/14/18 04:05 Glucose 193 mg/dL (70-105) H 03/14/18 04:05 - Clinical Findings Intake & Output: Intake & Output 03/13/18 03/14/18 03/14/18 23:59 07:59 15:59 Intake Total 100 / 100 360 / 360 Output Total 500 / 500 Balance -400 / -400 360 / 360 Weight 70.7 kg Consult Discharge Plan - Plan Referrals: Francisco Rashid MD [Primary Care Provider] -
--- NOTE | 2018-03-14 09:43 | Internal Med Progress Note ---
Hospitalist Progress Note - Encounter Date of Encounter: 03/14/18 Time of Encounter: 09:26 - Subjective Interval History: Patient with arthritis, chronic pain syndrome, DJD, GERD and cryptogenic pneumonia patient with admitted with cough for 5 days as nonproductive some chest pain CTA shows a pneumonia pulmonary is consulted for further evaluation patient is angry and wants to leave AMA because he is not getting enough pain medication he still requesting more narcotic he wants morphine on top of all his narcotic regimen` - Exam Vitals: Temp Pulse Resp BP Pulse Ox 97.6 F 70 16 141/85 95 03/14/18 06:38 03/14/18 06:38 03/14/18 06:38 03/14/18 06:38 03/14/18 06:38 Exam: Gen.: Vitals noted. Mild distress, shallow rapid breathing secondary to pain. Speaking softly. AAOx3 HEENT: PERRL/EOMI, oropharynx clear, Normocephalic, atraumatic, MMM Cardiac: Regular rhythm, very mildly tachycardic, no murmur, +S1/S2 Pulmonary: Shallow breathing, some coarse breath sounds with no evidence of wheezing or Rales however exam is limited secondary to inability to take deep breaths., equal chest expansion Abdomen: soft, nontender, BS noted, no guarding, no rebound. Extremities: no BLE edema, nontender calf, no cyanosis or clubbing Neuro: A&Ox3, moves all extremities, no focal deficits Psych: Appropriate mood and behavior - Assessment and Plan (1) Pneumonia Current Visit: No Status: Acute Assessment and Plan: pulmonary is consulted for further evaluation (2) Chronic pain Current Visit: Yes Status: Chronic Assessment and Plan: on lots of pain meds will consult palliative care for assistance (3) Acute respiratory failure with hypoxia Current Visit: Yes Status: Acute Assessment and Plan: clinically stable (4) Cryptogenic organizing pneumonia Current Visit: Yes Status: Acute - Time Spent with Patient Total time spent is greater than 50% in coordination of care (as documented) at patient's floor/unit and/or counseling patient: Internal Medicine: Result - Labs CBC & Chem 7: 03/14/18 04:05 03/14/18 04:05 Labs: Short CBC 03/14/18 Range/Units 04:05 WBC 17.3 H (4.3-11.1) K/mcL Hgb 14.5 (12.9-16.9) g/dL Hct 42.5 (37.5-50.1) % Plt Count 326 (140-400) K/mcL Neutrophils # 15.2 H (1.6-8.9) K/mcL BMP 03/14/18 04:05 Sodium 136 Potassium 4.0 Chloride 105 Carbon Dioxide 23 BUN 12 Creatinine 0.90 Glucose 193 H Calcium 9.0 Cardiac Enzymes 03/14/18 Range/Units 04:05 Troponin I 0.03 (< 0.04) ng/mL Consult Discharge Plan - Plan Referrals: Francisco Rashid MD [Primary Care Provider] - (1) Pneumonia Qualifiers: Pneumonia type: due to unspecified organism Laterality: unspecified laterality Lung location: unspecified part of lung Qualified Code(s): J18.9 - Pneumonia, unspecified organism (2) Chronic pain Qualifiers: Chronic pain type: due to trauma Qualified Code(s): G89.21 - Chronic pain due to trauma
[2018-03-14] MEDS: Gabapentin 300 MG CAPSULE PO SCH ×3 (10:37→21:06)
[2018-03-14] MEDS: Cefepime HCl 2,000 MG in Water for inj. (sterile) 20 ML 20 ML IVP SCH ×2 (10:37→19:08)
[2018-03-14] MEDS: *HR* OxyCODONE/APAP 10/325 TABLET PO PRN ×2 (10:38→22:41)
[2018-03-14] MEDS: Azithromycin 250 MG TABLET PO SCH (10:39)
[2018-03-14] MEDS: MORPHINE SUL Oral CONC 10 MG/0.5 ML ORAL.SYG SL PRN ×3 (12:47→21:07)
[2018-03-14] MEDS: rOPINIRole 0.25 MG TABLET PO SCH (21:07)
[2018-03-15] MEDS: Cefepime HCl 2,000 MG in Water for inj. (sterile) 20 ML 20 ML IVP SCH ×3 (00:41→17:12)
[2018-03-15] MEDS: methylPREDNISolone 125 MG/2 ML VIAL IVP SCH ×4 (00:41→17:09)
[2018-03-15] MEDS: MORPHINE SUL Oral CONC 10 MG/0.5 ML ORAL.SYG SL PRN ×2 (01:21→06:29)
[2018-03-15] MEDS: *HR* Heparin 5,000 UNIT/ML VIAL SQ SCH ×2 (06:27→17:08)
[2018-03-15] MEDS ORDERED: Aminoglycoside Consult 1 EACH MC ONE (07:38)
--- NOTE | 2018-03-15 09:02 | Electrocardiograph Report ---
[place] [id number] Test Date: 2018-03-13 Pat Name: Tone Mederos Department: 103 Room: 2N1 Gender: M Manager [employer]: : 1975 Requested By: Evie Schroeder Order Number: [id number] Reading MD: Freddy Rodriguez Measurements Intervals [place] Rate: 122 P: 59 SD: 125 QRS: 58 QRSD: 91 T: 33 QT: 296 QTc: 369 Interpretive Statements SINUS TACHYCARDIA NONSPECIFIC T-WAVE ABNORMALITY Electronically Signed On 03-15-2018 9:01:13 EDT by Freddy Rodriguez
[2018-03-15] MEDS: *HR* OxyCODONE/APAP 10/325 TABLET PO PRN ×2 (09:47→17:15)
[2018-03-15] MEDS: Azithromycin 250 MG TABLET PO SCH (09:47)
[2018-03-15] MEDS: Gabapentin 300 MG CAPSULE PO SCH ×3 (09:47→21:17)
--- NOTE | 2018-03-15 10:16 | Internal Med Progress Note ---
Hospitalist Progress Note - Encounter Date of Encounter: 03/15/18 Time of Encounter: 10:14 - Subjective Interval History: 43M with cryptogenic organizing pneumonia, arthritis, GERD, degenerative disc disease was admitted with cough and chest burning similar top prior flares of cryptogenic organizing pneumonia. He was first diagnosed atin June 2015, last flare in March 2016. CTA of the chest showed patchy multifocal groundglass opacities with prominence in the upper lobes. Reports ongpoing cough, pleuritic chest pain and shallow breathing due to burning of chest from front to back with deep breathing. On 4 L/NC, not on O2 at home WBC 27k --> 17k yesterday Vancomycin caused astrid syndrome yesterday - Exam Vitals: Temp Pulse Resp BP Pulse Ox 97.6 F 70 16 102/72 97 03/15/18 06:40 03/15/18 06:40 03/15/18 06:40 03/15/18 06:40 03/15/18 06:40 Exam: Gen.: Vitals noted. No distress, shallow breathing secondary to pain. Speaking softly. AAOx3 HEENT: PERRL/EOMI, oropharynx clear, Normocephalic, atraumatic, MMM Cardiac: Regular rhythm, no murmur, +S1/S2 Pulmonary: Shallow breathing, coarse crackles bilaterally, no wheezing Abdomen: soft, nontender, BS noted, no guarding, no rebound. Extremities: no BLE edema, non-tender calf, no cyanosis or clubbing Neuro: A&Ox3, moves all extremities, no focal deficits Psych: Appropriate mood and behavior - Assessment and Plan (1) Cryptogenic organizing pneumonia Current Visit: Yes Status: Acute Assessment and Plan: Pulmonology appreciated: will need 5-6 months of steroids Still requiring oxygen Continue Solumedrol IV, taper when ok with pulmonology Cont cefepime, azithromycin Trial of morphine IV x 3 doses if available (2) Acute hypoxemic respiratory failure Current Visit: No Status: Acute Assessment and Plan: as above (3) Chronic pain Current Visit: Yes Status: Chronic Assessment and Plan: cont oral opioids bowel regimen prn DVT Prophylaxis: heparin SQ - Time Spent with Patient Total time spent is greater than 50% in coordination of care (as documented) at patient's floor/unit and/or counseling patient: 25 - 35 minutes Plan of Care Discussed with: patient Internal Medicine: Result - Labs CBC & Chem 7: 03/14/18 04:05 03/14/18 04:05 Consult Discharge Plan - Plan Referrals: Francisco Rashid MD [Primary Care Provider] - (3) Chronic pain Qualifiers: Chronic pain type: due to trauma Qualified Code(s): G89.21 - Chronic pain due to trauma
[2018-03-15] MEDS: *HR* Morphine 2 MG/ML SYRINGE IVP PRN ×3 (10:57→21:19)
--- NOTE | 2018-03-15 14:09 | Pulmonology Progress Note ---
Date of Encounter: 03/15/18 Time of Encounter: 12:30 Assessment and Plan (1) Acute respiratory failure with hypoxia Current Visit: Yes Status: Acute To liberate oxygen as tolerated. The V/Q mismatch secondary to exacerbation of cryptogenic organizing pneumonia (2) Cryptogenic organizing pneumonia Current Visit: No Status: Acute Patient imaging consistent with exacerbation of cryptogenic organizing pneumonia however atypical infection cannot be ruled out reasonable to continue antibiotics and topical steroids and bronchodilators. Would recommend steroids Prednisone 40 mg at least 4-6 months of steroids patient is going to follow with Dr. Zuleta as an outpatient. (3) Opioid dependence Current Visit: Yes Status: Acute Management according to primary team . Qualifiers: Substance use status: with unspecified opioid-induced disorder Qualified Code(s): F11.29 - Opioid dependence with unspecified opioid-induced disorder Subjective Principal diagnosis: Exacerbation of Cryptogenic organizing pneumonia Interval history: Patient says his symptoms are slightly better but still has cough is mostly dry denies any sputum production but has some on and off chest pain during . coughing and breathing and denies any fever or chills, denies any other constitutional symptoms. Objective PUL Vital signs: Last Vital Signs Temp 97.6 F 03/15/18 06:40 Pulse 70 03/15/18 06:40 Resp 16 03/15/18 06:40 BP 102/72 03/15/18 06:40 Pulse Ox 97 03/15/18 06:40 Auscultation: bilateral: wheezes (mimimal scattered wheezes ) Results - Laboratory Findings CBC and BMP: 03/14/18 04:05 03/14/18 04:05 Abnormal lab findings: Abnormal lab results WBC 17.3 K/mcL (4.3-11.1) H 03/14/18 04:05 Neutrophils # 15.2 K/mcL (1.6-8.9) H 03/14/18 04:05 Glucose 193 mg/dL (70-105) H 03/14/18 04:05 POC Glucose 129 mg/dL (70-99) H 03/14/18 23:50 - Clinical Findings Intake & Output: Intake & Output 03/14/18 03/15/18 03/15/18 23:59 07:59 15:59 Intake Total 170 / 170 20 / 20 240 / 240 Output Total 900 / 900 400 / 400 450 / 450 Balance -730 / -730 -380 / -380 -210 / -210 Weight 71.3 kg Consult Discharge Plan - Plan Referrals: Francisco Rashid MD [Primary Care Provider] -
[2018-03-15] MEDS: rOPINIRole 0.25 MG TABLET PO SCH (21:16)
[2018-03-16] MEDS: Cefepime HCl 2,000 MG in Water for inj. (sterile) 20 ML 20 ML IVP SCH ×4 (00:41→23:57)
[2018-03-16] MEDS: methylPREDNISolone 125 MG/2 ML VIAL IVP SCH ×2 (00:42→05:09)
[2018-03-16] MEDS: MORPHINE SUL Oral CONC 10 MG/0.5 ML ORAL.SYG SL PRN ×4 (00:43→20:29)
[2018-03-16 05:48] LABS: Hematocrit 41.5 % (37.5-50.1); Hemoglobin 14.1 g/dL (12.9-16.9); Mean Corpuscular Hemoglobin 29.6 pg (28.0-33.3); Mean Platelet Volume 9.5 fL (9.4-12.4); Platelet Count 341 K/mcL (140-400); Red Blood Count 4.77 M/mcL (4.19-5.50); Red Cell Distribution Width 12.6 % (11.5-14.5)
[2018-03-16 06:12] LABS: BUN/Creatinine Ratio 19 (6-26); Blood Urea Nitrogen 20 mg/dL (6-20); Calcium 8.8 mg/dL (8.6-10.3); Carbon Dioxide 25 mEq/L (23-29); Chloride 104 mEq/L (98-107); Glucose 143 mg/dL (70-105); Osmolality,Calculated 291 (280-300); Potassium 4.1 mEq/L (3.5-5.1); Sodium 138 mEq/L (136-145); eGFR For Non-African Americans > 60 (> 60)
[2018-03-16] MEDS: *HR* Heparin 5,000 UNIT/ML VIAL SQ SCH ×2 (06:35→18:19)
[2018-03-16] MEDS: Azithromycin 250 MG TABLET PO SCH (09:35)
[2018-03-16] MEDS: Gabapentin 300 MG CAPSULE PO SCH ×3 (09:35→20:28)
--- NOTE | 2018-03-16 10:21 | Pulmonology Progress Note ---
Date of Encounter: 03/16/18 Time of Encounter: 10:00 Assessment and Plan (1) Acute respiratory failure with hypoxia Current Visit: Yes Status: Acute To liberate oxygen as tolerated. The V/Q mismatch secondary to exacerbation of cryptogenic organizing pneumonia. To make him walk and to ascertains excercie O2 (2) Cryptogenic organizing pneumonia Current Visit: No Status: Acute Patient imaging consistent with exacerbation of cryptogenic organizing pneumonia however atypical infection cannot be ruled out reasonable to continue antibiotics and topical steroids and bronchodilators. Would recommend steroids Prednisone 40 mg at least 4-6 months of steroids patient is going to follow with Dr. Zuleta as an outpatient. (3) Opioid dependence Current Visit: Yes Status: Acute Management according to primary team . Qualifiers: Substance use status: with unspecified opioid-induced disorder Qualified Code(s): F11.29 - Opioid dependence with unspecified opioid-induced disorder Subjective Principal diagnosis: Exacerbation of Cryptogenic organizing pneumonia Interval history: Patient says his symptoms are slightly better but still has cough is mostly dry denies any sputum production but has some on and off chest pain during . coughing and breathing and denies any fever or chills, denies any other constitutional symptoms. 03/16 He is slowly getting better. Complianed still having significant burning sensation in the lungs he has on and off joint pain patient denies any fever or chills, denies any constitutional symptoms Objective PUL Vital signs: Last Vital Signs Temp 98.2 F 03/16/18 07:35 Pulse 67 03/16/18 07:35 Resp 16 03/16/18 07:35 BP 126/82 03/16/18 07:35 Pulse Ox 96 03/16/18 07:35 Auscultation: bilateral: diminished breath sounds, wheezes (very scattered ) Results - Laboratory Findings CBC and BMP: 03/16/18 05:09 03/16/18 05:09 Abnormal lab findings: Abnormal lab results WBC 27.0 K/mcL (4.3-11.1) H D 03/16/18 05:09 Neutrophils # 15.2 K/mcL (1.6-8.9) H 03/14/18 04:05 Glucose 143 mg/dL (70-105) H 03/16/18 05:09 POC Glucose 138 mg/dL (70-99) H 03/15/18 23:46 - Clinical Findings Intake & Output: Intake & Output 03/15/18 03/16/18 03/16/18 23:59 07:59 15:59 Intake Total 700 / 700 Output Total 1000 / 1000 600 / 600 Balance -300 / -300 -580 / -580 Weight 72.4 kg Consult Discharge Plan - Plan Referrals: Francisco Rashid MD [Primary Care Provider] -
--- NOTE | 2018-03-16 10:27 | Internal Med Progress Note ---
Hospitalist Progress Note - Encounter Date of Encounter: 03/16/18 Time of Encounter: 09:00 - Subjective Interval History: Reports ongoing cough, pleuritic chest pain and shallow breathing due to burning of chest from front to back with deep breathing. Had some relief with the first 2 doses of IV morphine but not with the third On 4 L/NC, not on O2 at home. O2 sat dropped to low 80's when oxygen taken off yesterday while going to the bathroom WBC 27k --> 17k --> 27k while on steroids Vancomycin caused astrid syndrome 03/14 - Exam Vitals: Temp Pulse Resp BP Pulse Ox 98.2 F 67 16 126/82 96 03/16/18 07:35 03/16/18 07:35 03/16/18 07:35 03/16/18 07:35 03/16/18 07:35 Exam: Gen.: Vitals noted. No distress, shallow breathing secondary to pain. AAOx3 HEENT: PERRL/EOMI, oropharynx clear, Normocephalic, atraumatic, MMM Cardiac: Regular rhythm, no murmur, +S1/S2 Pulmonary: Poor to fair air entry breathing, few coarse crackles bilaterally, no wheezing Abdomen: soft, nontender, BS noted, no guarding, no rebound. Extremities: no BLE edema, non-tender calf, no cyanosis or clubbing Neuro: A&Ox3, moves all extremities, no focal deficits Psych: Appropriate mood and behavior - Assessment and Plan (1) Cryptogenic organizing pneumonia Current Visit: Yes Status: Acute (2) Acute hypoxemic respiratory failure Current Visit: No Status: Acute (3) Chronic pain Current Visit: Yes Status: Chronic - Summary of Assessment and Plan Summary of Assessment and Plan: 43M with cryptogenic organizing pneumonia, arthritis, GERD, degenerative disc disease was admitted with cough and chest burning similar top prior flares of cryptogenic organizing pneumonia. He was first diagnosed in June 2015, last flare in March 2016. CTA of the chest showed patchy multifocal groundglass opacities with prominence in the upper lobes. # Acute hypoxemic respiratory failure due to cryptogenic organizing pneumonia flare and possible atypical pneumonia - Pulmonology appreciated: Abx x 5 days, may change prednisone to 60 mg PO daily today, will discharge on prednisone 40 daily when ready. Appt with Dr. Vieyra on 03/20/18. Plan 4-6 months of steroids - Cont cefepime, azithromycin for 5 days total (03/14-03/18) - Will need home supplemental oxygen - Ambulate in hallway with portable oxygen # Pleuritic chest pain due to above - Start fentanyl patch 25 to chest, attempt to decrease oral morphine prn which is not very effective any way - Cont Percocet Po prn - Possible discharge on 03/18 after Abx course completed, if O2 sats reasonable with supplemental oxygen and pain control at a level where patient can breathe comfortabley (counseled and patient understands that a pain score of zero may not be achievable and he will focus on functional capability to guide pain management) # VTE prophy: heparin SubQ No AM labs indicated - Time Spent with Patient Total time spent is greater than 50% in coordination of care (as documented) at patient's floor/unit and/or counseling patient: Greater than 35 minutes Plan of Care Discussed with: patient (counseled, discussed with pulmonology in detail) Internal Medicine: Result - Labs CBC & Chem 7: 03/16/18 05:09 03/16/18 05:09 Labs: Short CBC 03/16/18 Range/Units 05:09 WBC 27.0 H D (4.3-11.1) K/mcL Hgb 14.1 (12.9-16.9) g/dL Hct 41.5 (37.5-50.1) % Plt Count 341 (140-400) K/mcL BMP 03/16/18 05:09 Sodium 138 Potassium 4.1 Chloride 104 Carbon Dioxide 25 BUN 20 Creatinine 1.05 Glucose 143 H Calcium 8.8 Consult Discharge Plan - Plan Referrals: Francisco Rashid MD [Primary Care Provider] - (3) Chronic pain Qualifiers: Chronic pain type: due to trauma Qualified Code(s): G89.21 - Chronic pain due to trauma
[2018-03-16] MEDS ORDERED: *HR* FentaNYL PATCH 25 MCG PATCH TD SCH (10:30)
[2018-03-16] MEDS: *HR* OxyCODONE/APAP 10/325 TABLET PO PRN ×2 (11:13→22:51)
[2018-03-16] MEDS: predniSONE 20 MG TABLET PO SCH (12:42)
[2018-03-16] MEDS: rOPINIRole 0.25 MG TABLET PO SCH (20:28)
[2018-03-17] MEDS: MORPHINE SUL Oral CONC 10 MG/0.5 ML ORAL.SYG SL PRN ×5 (00:30→20:43)
[2018-03-17] MEDS: *HR* Heparin 5,000 UNIT/ML VIAL SQ SCH ×2 (05:03→17:46)
[2018-03-17] MEDS: Azithromycin 250 MG TABLET PO SCH (09:37)
[2018-03-17] MEDS: Gabapentin 300 MG CAPSULE PO SCH ×3 (09:37→20:43)
[2018-03-17] MEDS: predniSONE 20 MG TABLET PO SCH (09:37)
--- NOTE | 2018-03-17 09:57 | Pulmonology Progress Note ---
Date of Encounter: 03/17/18 Time of Encounter: 08:00 Assessment and Plan (1) Acute respiratory failure with hypoxia Current Visit: Yes Status: Acute I have explained to the patient is important to take deep breath and to wean off oxygen to keep SPO2 around 90% and agree with current treatment. Patient will need incentive spirometry and better pain control. (2) Cryptogenic organizing pneumonia Current Visit: No Status: Suspected Patient to continue on systemic steroid until he follows up in the clinic (3) Opioid dependence Current Visit: Yes Status: Chronic Treatments of chronic pain per primary team in the possible to transition patient to morphine or Dilaudid since fentanyl and is not helping him according to the patient. Qualifiers: Substance use status: with unspecified opioid-induced disorder Qualified Code(s): F11.29 - Opioid dependence with unspecified opioid-induced disorder Subjective Principal diagnosis: Exacerbation of Cryptogenic organizing pneumonia Interval history: Patient is complaining of pain and is requesting morphine because of fentanyl has not been helping him to take deep breath. Objective PUL Vital signs: Last Vital Signs Temp 97.9 F 03/17/18 06:55 Pulse 77 03/17/18 06:55 Resp 16 03/17/18 06:55 BP 155/103 03/17/18 06:55 Pulse Ox 97 03/17/18 06:55 General appearance: appears uncomfortable Eyes: nonicteric ENT: oropharynx moist Neck: supple Auscultation: bilateral: clear Percussion: bilateral: not dull Cardiovascular: regular rate and rhythm Gastrointestinal: normoactive bowel sounds, non-distended Extremities: no cyanosis normal mental status, non-focal exam mood appropriate Results - Laboratory Findings CBC and BMP: 03/16/18 05:09 03/16/18 05:09 Abnormal lab findings: Abnormal lab results WBC 27.0 K/mcL (4.3-11.1) H D 03/16/18 05:09 Neutrophils # 15.2 K/mcL (1.6-8.9) H 03/14/18 04:05 Glucose 143 mg/dL (70-105) H 03/16/18 05:09 POC Glucose 138 mg/dL (70-99) H 03/15/18 23:46 - Clinical Findings Intake & Output: Intake & Output 03/16/18 03/17/18 03/17/18 23:59 07:59 15:59 Intake Total 320 / 320 920 / 920 240 / 240 Output Total 0 / 0 1450 / 1450 Balance 320 / 320 -530 / -530 240 / 240 Weight 72.6 kg Consult Discharge Plan - Plan Referrals: Francisco Rashid MD [Primary Care Provider] -
[2018-03-17] MEDS: *HR* OxyCODONE/APAP 10/325 TABLET PO PRN ×2 (11:38→17:46)
[2018-03-17] MEDS: Cefepime HCl 2,000 MG in Water for inj. (sterile) 20 ML 20 ML IVP SCH ×3 (11:38→20:44)
--- NOTE | 2018-03-17 16:03 | Internal Med Progress Note ---
Hospitalist Progress Note - Encounter Date of Encounter: 03/17/18 Time of Encounter: 15:55 - Exam Vitals: Temp Pulse Resp BP Pulse Ox 97.9 F 77 16 155/103 97 03/17/18 06:55 03/17/18 06:55 03/17/18 06:55 03/17/18 06:55 03/17/18 06:55 Exam: Gen.: Vitals noted. No distress, shallow breathing secondary to pain. AAOx3 HEENT: PERRL/EOMI, oropharynx clear, Normocephalic, atraumatic, MMM Cardiac: Regular rhythm, no murmur, +S1/S2 Pulmonary: Poor to fair air entry breathing, few coarse crackles bilaterally, no wheezing Abdomen: soft, nontender, BS noted, no guarding, no rebound. Extremities: no BLE edema, non-tender calf, no cyanosis or clubbing Neuro: A&Ox3, moves all extremities, no focal deficits Psych: Appropriate mood and behavior - Assessment and Plan (1) Chronic pain Current Visit: Yes Status: Chronic (2) Acute respiratory failure with hypoxia Current Visit: Yes Status: Acute (3) Cryptogenic organizing pneumonia Current Visit: No Status: Suspected DVT Prophylaxis: heparin SQ - Summary of Assessment and Plan Summary of Assessment and Plan: 43M with cryptogenic organizing pneumonia, arthritis, GERD, degenerative disc disease was admitted with cough and chest burning similar top prior flares of cryptogenic organizing pneumonia. He was first diagnosed in June 2015, last flare in March 2016. CTA of the chest showed patchy multifocal groundglass opacities with prominence in the upper lobes. # Acute hypoxemic respiratory failure due to cryptogenic organizing pneumonia flare and possible atypical pneumonia - Pulmonology appreciated: Abx x 5 days, IV steroid changed to prednisone to 60 mg PO daily 03/16/2018. - plan is to discharge on prednisone 40 daily when ready. Appt with Dr. Vieyra on 03/20/18. Plan 4-6 months of steroids - Cont cefepime, azithromycin for 5 days total (03/14-03/18) - Will silvio need home supplemental oxygen eval - Ambulates in hallway with portable oxygen # Pleuritic chest pain due to above - Started on Fentanyl patch 25 mcg to chest, and on oral morphine prn which pt states is not very effective - Continue Percocet Po prn - Pt requesting DC PO morphine and Fetanyl patch and to be placed on IV morphine which he states has helped control his pain better in the past. - Discussed with pharmacy and per pharmacy there is a shortage and only medial director Dr. Macias can authorize morphine or Dilaudid. Discussed with Dr. Macias and states he is aware. - Possible discharge on 03/18 after Abx course completed, if O2 sats reasonable with supplemental oxygen and pain control at a level where patient can breathe conformably (counseled and patient understands that a pain score of zero may not be achievable and he will focus on functional capability to guide pain management) # VTE prophy: heparin SubQ No AM labs indicated - Time Spent with Patient Total time spent is greater than 50% in coordination of care (as documented) at patient's floor/unit and/or counseling patient: less than 15 minutes Plan of Care Discussed with: patient Internal Medicine: Result - Labs CBC & Chem 7: 03/16/18 05:09 03/16/18 05:09 Consult Discharge Plan - Plan Referrals: Francisco Rashid MD [Primary Care Provider] - (1) Chronic pain Qualifiers: Chronic pain type: due to trauma Qualified Code(s): G89.21 - Chronic pain due to trauma
[2018-03-17] MEDS: rOPINIRole 0.25 MG TABLET PO SCH (20:44)
[2018-03-18] MEDS: *HR* OxyCODONE/APAP 10/325 TABLET PO PRN ×2 (00:11→08:31)
[2018-03-18] MEDS: MORPHINE SUL Oral CONC 10 MG/0.5 ML ORAL.SYG SL PRN ×2 (01:42→05:57)
[2018-03-18] MEDS: Cefepime HCl 2,000 MG in Water for inj. (sterile) 20 ML 20 ML IVP SCH (04:04)
[2018-03-18] MEDS: *HR* Heparin 5,000 UNIT/ML VIAL SQ SCH (05:56)
[2018-03-18 07:32] VITALS: BP 149/91
--- NOTE | 2018-03-18 08:22 | Pulmonology Progress Note ---
Date of Encounter: 03/18/18 Time of Encounter: 07:45 Assessment and Plan (1) Acute respiratory failure with hypoxia Current Visit: Yes Status: Acute I have explained to the patient is important to take deep breath and to wean off oxygen to keep SPO2 around 90% and agree with current treatment. Patient will need incentive spirometry and better pain control. 03/18 overall there is improvement as long as patient to take deep breath and wean off oxygen to keep SPO2 around 90%. Overall patient is stable for discharge in my opinion and can be discharged on prednisone 40 mg to stay on that dose until he is going to be seen in the office in 2-4 weeks. Encouraged patient to continue incentive spirometry and patient needs 6 minute walk before he is discharged to give him an idea about adjusting his oxygen. As outpatient he will need to follow-up images and perhaps pulmonary function test as well. Please call for any questions. (2) Cryptogenic organizing pneumonia Current Visit: No Status: Suspected Patient to continue on systemic steroid until he follows up in the clinic (3) Opioid dependence Current Visit: Yes Status: Chronic Treatments of chronic pain per primary team in the possible to transition patient to morphine or Dilaudid since fentanyl and is not helping him according to the patient. Qualifiers: Substance use status: with unspecified opioid-induced disorder Qualified Code(s): F11.29 - Opioid dependence with unspecified opioid-induced disorder Subjective Principal diagnosis: Exacerbation of Cryptogenic organizing pneumonia Interval history: Patient is complaining of pain and is requesting morphine because of fentanyl has not been helping him to take deep breath. 03/18 patient denies any significant changes since yesterday Objective PUL Vital signs: Last Vital Signs Temp 98.2 F 03/18/18 07:30 Pulse 90 03/18/18 07:30 Resp 18 03/18/18 07:30 BP 149/91 03/18/18 07:30 Pulse Ox 94 03/18/18 07:30 General: Patient is in no acute distress. HEENT: Normocephalic atraumatic, pupils are equal round and reactive to light and accommodation, anicteric sclera, nares is patent, mucous membranes moist, no JVD, trachea is midline Cardiovascular: Normal sinus rhythm, S1 and S2 audible, no murmur or rubs Respiratory: Clear to auscultation bilaterally. No acute distress. No wheezing. Patient not using accessory muscles. Abdomen: Soft, nontender, nondistended, positive bowel sounds in all 4 quadrants Extremities: Warm, dry, trace lower extremity edema. Normal capillary refill. Neuro: Alert and oriented and follows commands. Grossly no neuro deficits. Skin: Warm to touch : No obvious abnormalities. Psych: Normal Results - Laboratory Findings CBC and BMP: 03/16/18 05:09 03/16/18 05:09 Abnormal lab findings: Abnormal lab results WBC 27.0 K/mcL (4.3-11.1) H D 03/16/18 05:09 Neutrophils # 15.2 K/mcL (1.6-8.9) H 03/14/18 04:05 Glucose 143 mg/dL (70-105) H 03/16/18 05:09 POC Glucose 138 mg/dL (70-99) H 03/15/18 23:46 - Clinical Findings Intake & Output: Intake & Output 03/17/18 03/18/18 03/18/18 23:59 07:59 15:59 Intake Total 220 / 220 20 / 20 Output Total 0 / 0 0 / 0 Balance 220 / 220 20 / 20 Weight 72.8 kg Consult Discharge Plan - Plan Referrals: Francisco Rashid MD [Primary Care Provider] -
[2018-03-18] MEDS: predniSONE 20 MG TABLET PO SCH (08:29)
[2018-03-18] MEDS: Azithromycin 250 MG TABLET PO SCH (08:30)
[2018-03-18] MEDS: Gabapentin 300 MG CAPSULE PO SCH (08:32)
[2018-03-18] MEDS ORDERED: *HR* Morphine 2 MG/ML SYRINGE IVP ONE (08:47)
--- NOTE | 2018-03-18 08:53 | Discharge Summary ---
Date of Encounter: 03/18/18 Time of Encounter: 08:50 - Discharge Diagnosis (1) Cryptogenic organizing pneumonia Priority: Primary Status: Acute Assessment and Plan: 43 year old male with past medical history of cryptogenic organizing pneumonia , arthritis, GERD, degenerative disc disease presents to emergency department with complaint of cough and chest burning. He states the cough began 5 days ago is nonproductive. He stated that it felt exactly like his previous flare of cryptogenic organizing pneumonia. He was first diagnosed at this facility in June 2015 with a flare in March 2016. He states his initial diagnosis did require intubation, lung biopsy and transferred to [facility] intensive care. He describes his chest pain as diffusely located across the chest and burning in nature. Pain is exacerbated with deep breathing and coughing. He denies any symptoms of fevers, chills, nausea, vomiting, numbness, tingling. He states that he is not necessarily short of breath but finds it difficult to take a deep breath due to his pain. He also describes some orthopnea but denies any lower extremity swelling. In the emergency department, vital signs were significant for tachycardia with a rate of 130, tachypnea 22, blood pressure 134/93, he was not was saturating 96 % on 4L. laboratory results significant for WBC elevation of 27.8, troponin 0.06 , BUNs/creatinine of 12/1.12 which is consistent with baseline. CTA of the chest was obtained to rule out coronary embolism and shows patchy multifocal groundglass opacities with prominence in the upper lobes. Pulmonology was consulted from the emergency department. He was seen by pulmonary and assessed with acute hypoxic respiratory failure secondary to cryptogenic organizing pneumonia. CT scan showed worsening ground glass opacities. He was started on broad spectrum antibiotics with cefepime and azithromycin to complete a 5 day course. he was also started on IV steroids which pulmonary recommended tapering to 40mg po daily on discharge. He was provided an incentive spirometer and encouraged to take deep breaths. He will follow up with pulmonary as an outpatient. 35 minutes was spent discharging this patient. (2) Chronic pain Priority: Primary Status: Chronic Qualifiers: Chronic pain type: due to trauma Qualified Code(s): G89.21 - Chronic pain due to trauma (3) Acute respiratory failure with hypoxia Priority: Primary Status: Acute (4) Sepsis Priority: Secondary Status: Suspected Qualifiers: Sepsis type: sepsis due to unspecified organism Qualified Code(s): A41.9 - Sepsis, unspecified organism (5) GERD (gastroesophageal reflux disease) Priority: Secondary Status: Chronic Qualifiers: Esophagitis presence: without esophagitis Qualified Code(s): K21.9 - Gastro -esophageal reflux disease without esophagitis (6) DVT prophylaxis Priority: Secondary Status: Acute Hospital course: Mr. Mederos is a 43 year old male - Time Spent with Patient Total time spent providing and/or coordinating discharge services: - Discharge Medications Prescriptions: Bisacodyl [Dulcolax] 10 mg PO HS PRN #30 tablet PRN Reason: Constipation predniSONE [PredniSONE] 40 mg PO DAILY 30 Days #60 tablet Home Medications: Cyclobenzaprine [Flexeril] 10 mg PO TID PRN 03/13/18 [History] Gabapentin [Neurontin] 300 mg PO TID 03/13/18 [History] Naproxen Sodium [Aleve] 660 mg PO BID 03/13/18 [History] Omeprazole [PriLOSEC] 20 mg PO DAILY 03/13/18 [History] Oxycodone HCl/Acetaminophen [Percocet 10-325 mg Tablet] 1 tab PO Q6H PRN [History] Quetiapine Fumarate [Seroquel] 50 mg PO HS 03/13/18 [History] rOPINIRole [Requip] 0.25 mg PO HS 03/13/18 [History] Bisacodyl [Dulcolax] 10 mg PO HS PRN #30 tablet 03/18/18 [Rx] predniSONE [PredniSONE] 40 mg PO DAILY 30 Days #60 tablet 03/18/18 [Rx] Allergies/Adverse Reactions: 3 Allergy/AdvReac Type Severity Reaction Status Date / Time meloxicam [From Mobic] Allergy Rash Verified 03/13/18 17:17 Penicillins [PCN] Allergy Rash Verified 03/13/18 17:17 vancomycin AdvReac Intermediate Redness of Verified 03/15/18 10:30 Skin aspirin AdvReac See Verified 03/13/18 17:17 Comments Date of admission: 03/14/18 00:10 Primary care physician: Francisco Rashid MD Consults: 03/14/18 09:10 Consult to Palliative Care [CONS] Routine Comment: Consulting Provider: [facility] [place] Reason for Consult: chronic pain Time Notified: 09:10 Call Completed: No - Constitutional Vitals: Temp Pulse Resp BP Pulse Ox 98.2 F 90 18 149/91 94 03/18/18 07:30 03/18/18 07:30 03/18/18 07:30 03/18/18 07:30 03/18/18 07:30 Exam: Gen.: Vitals noted. No distress, shallow breathing secondary to pain. AAOx3 HEENT: PERRL/EOMI, oropharynx clear, Normocephalic, atraumatic, MMM Cardiac: Regular rhythm, no murmur, +S1/S2 Pulmonary: Poor to fair air entry breathing, few coarse crackles bilaterally, no wheezing Abdomen: soft, nontender, BS noted, no guarding, no rebound. Extremities: no BLE edema, non-tender calf, no cyanosis or clubbing Neuro: A&Ox3, moves all extremities, no focal deficits Psych: Appropriate mood and behavior - Patient Status Disposition: Home, Self-Care Condition: Fair - Discharge Instructions Instructions: Prednisone (By mouth), Bisacodyl (By mouth), Pneumonia (GEN) Follow Up With: Francisco Rashid MD [Primary Care Provider] - Spencer Zuleta MD [Partnered Physician] - (appt. requested)
== END 2018-03-18 11:41 | disposition home or self-care (01) | DRG 871 ==
LOC: EMEROOARM 14:09 → 2NENU 14:09 → 2ANU 14:09 → 2NENU 20:45 → SUATTDRO 03-14 00:10
PROVIDERS: ADMIT Internal Medicine; ATTEND Student in an Organized Health Care Education/Training Program